=== PATIENT | female | born 1970 | race Two or more races ===

== ENCOUNTER → 2017-08-05 | Outpatient (CLI) | payer OTHER ==
[~2017-08-05] MED LIST: ACET500C PO; ALBU83IN INH; ASPI81CH PO; LISI10TA4 PO; NEXI40CA PO; PERCOCET PO; PROT1TAB2 PO; REGL10TA6 PO; SUCR1TA PO
== END ==
LOC: M RAD 15:21
PROVIDERS: ATTEND Internal Medicine
DX: Z12.31 Encounter for screening mammogram for malignant neoplasm of breast (principal); Z53.8 Procedure and treatment not carried out for other reasons

== ENCOUNTER → 2017-08-14 | Outpatient (CLI) | payer OTHER ==
--- NOTE | 2017-08-14 15:52 | REPMRS ---
Patient History The patient states she had a clinical breast exam in August 2017. Patient is postmenopausal. No known family history of cancer. Taking estrogen for 5 years. Digital Mammo Diagnostic Bilateral: Left Breast - August 14, 2017 - Exam #: [id number] CC and MLO view(s) were taken of the left breast. Technologist: Keyona Hall Technologist Prior study comparison: November 08, 2015, digital mammo diagnostic bilateral performed at [facility]. September 23, 2014, bilateral digital mammo screening bilat performed at [facility]. October 02, 2011, bilateral digital mammo screening bilat, performed at [facility] ([facility]). FINDINGS: There are scattered fibroglandular densities. There has been no change in the appearance of the mammogram from the prior studies. There is a mild amount of scattered fibroglandular density which is fairly symmetric. There is no interval development of dominant mass, architectural distortion, or clustered microcalcification suggestive of malignancy. ASSESSMENT: BI-RADS/ACR category 1 mammogram. Negative. Recommendation Routine screening mammogram in 1 year (for women over age 40). This mammogram was interpreted with the aid of an FDA-approved computer-aided dectection system. Electronically Signed By: Félix Grover MD 08/14/17 [id number]
== END ==
LOC: M RAD 15:24
PROVIDERS: ATTEND Internal Medicine
DX: N64.4 Mastodynia (principal); Z78.0 Asymptomatic menopausal state